=== PATIENT | male | born 1970 | race Caucasian/White ===

== ENCOUNTER 2016-11-22 03:09 | Emergency (ER) | payer MEDICARE, OTHER ==
[~2016-11-22 03:09] MED LIST: ABIL2TAB2 PO; CELE20TA PO
[2016-11-22 05:28] LABS: BASOPHIL # 0.1 TH/MM3 (0-0.2); BASOPHIL % 0.7 % (0.0-2.0); EOSINOPHIL # 0.2 TH/MM3 (0-0.4); EOSINOPHIL % 2.9 % (0.0-4.0); HEMATOCRIT 40.5 % (39.0-51.0); HEMO FLAGS DIFF FINAL; LYMPH % 33.4 % (9.0-44.0); LYMPHOCYTE # 2.6 TH/MM3 (1.0-4.8); MEAN CELL VOLUME 89.5 FL (80.0-100.0); MEAN CORPUSCULAR HGB CONC 35.8 % (32.0-36.0); MONO % 10.6 % (0.0-8.0); NEUT % 52.4 % (16.0-70.0); PLATELET COUNT 276 TH/MM3 (150-450); RED BLOOD COUNT 4.52 MIL/MM3 (4.50-5.90); RED CELL DISTRIBUTION WIDTH 14.4 % (11.6-17.2); WHITE BLOOD COUNT 7.6 TH/MM3 (4.0-11.0)
--- NOTE | 2016-11-22 05:28 | PD ---
HPI Chief Complaint: Psychiatric Symptoms Time Seen by Provider: 05:23 Travel History International Travel<30 days: No Contact w/Intl Traveler<30days: No Traveled to known affect area: No History of Present Illness HPI 46-year-old white male presents to emergency department under Mujica act. The patient states that he had been living in a sober living facility for the past month. He had just moved back to [place]. He had been staying in a sober living facility in [facility]. He states that one of the clients allegedly had been aggravating the patient due to his underlying mental illness. The patient states that he had him self Mujica acted before he became physical worse this individual or he performed self-harm. He states that he is disabled with Mental health problems. He has not been on medications now for over a year. Patient states that he has a history of alcohol and substance abuse in the past. He alleges sobriety now for over a month. He denies any toxic ingestions. No recent illness. PFS Past Medical History Narrative Medical Depression, chronic back and leg pain Depression: Yes Diabetes: No Diminished Hearing: No Psychiatric: Yes Immunizations Current: Yes Seizures: No Tetanus Vaccination: < 5 Years Past Surgical History Surgical History: No Previous Surgery Social History Alcohol Use: No Tobacco Use: Yes Substance Use: Yes ( OCCASIONALLY PER PT) Allergies-Medications (Allergen,Severity, Reaction): Coded Allergies: No Known Allergies (Unverified , 09/09/16) Reported Meds & Prescriptions Reported Meds & Active Scripts Active Reported Celexa (Citalopram Hydrobromide) 20 Mg Tab 20 Mg PO DAILY Abilify (Aripiprazole) 2 mg Tab 1 Tab PO DAILY Review of Systems Except as stated in HPI: all other systems reviewed are Neg Psychiatric: Positive: Depression, Suicidal Ideations, Mood Disorder, Substance Abuse, No: Anxiety, Disorder of Thought, Homicidal Ideation Physical Exam Narrative GENERAL: Well-nourished, well-developed patient. SKIN: Warm and dry. HEAD: Normocephalic and atraumatic. EYES: No scleral icterus. No injection or drainage. ENT: No nasal drainage noted. Mucous membranes pink. Airway patent. NECK: Supple, trachea midline. Moves head freely without obvious discomfort. CARDIOVASCULAR: Regular rate and rhythm without murmurs, gallops, or rubs. RESPIRATORY: Breath sounds equal bilaterally. No accessory muscle use. GASTROINTESTINAL: Abdomen soft, non-tender, nondistended. EXTREMITIES: No cyanosis or edema. BACK: Nontender without obvious deformity. No CVA tenderness. NEURO: Patient is alert and oriented. no sensorimotor deficits. Nonfocal. Normal speech. PSYCH: No delusions. No auditory or visual hallucinations. Data Data Last Documented VS Vital Signs Date Time Temp Pulse Resp B/P Pulse Ox O2 Delivery O2 Flow Rate FiO2 11/22/16 05:42 63 18 126/65 98 Room Air Orders Psych Screen (11/22/16 03:31) Diet Regular Basic (11/22/16 Breakfast) Complete Blood Count With Diff (11/22/16 04:49) Comprehensive Metabolic Panel (11/22/16 04:49) Drug Screen, Random Urine (11/22/16 04:49) Alcohol (Ethanol) (11/22/16 04:49) Salicylates (Aspirin) (11/22/16 04:49) Tylenol (Acetaminophen) (11/22/16 04:49) Labs Laboratory Tests Test 11/22/16 11/22/16 05:00 05:15 Urine Opiates Screen NEG Urine Barbiturates Screen NEG Urine Amphetamines Screen NEG Urine Benzodiazepines Screen NEG Urine Cocaine Screen NEG Urine Cannabinoids Screen NEG White Blood Count 7.6 TH/MM3 Red Blood Count 4.52 MIL/MM3 Hemoglobin 14.5 GM/DL Hematocrit 40.5 % Mean Corpuscular Volume 89.5 FL Mean Corpuscular Hemoglobin 32.0 PG Mean Corpuscular Hemoglobin 35.8 % Concent Red Cell Distribution Width 14.4 % Platelet Count 276 TH/MM3 Mean Platelet Volume 7.4 FL Neutrophils (%) (Auto) 52.4 % Lymphocytes (%) (Auto) 33.4 % Monocytes (%) (Auto) 10.6 % Eosinophils (%) (Auto) 2.9 % Basophils (%) (Auto) 0.7 % Neutrophils # (Auto) 4.0 TH/MM3 Lymphocytes # (Auto) 2.6 TH/MM3 Monocytes # (Auto) 0.8 TH/MM3 Eosinophils # (Auto) 0.2 TH/MM3 Basophils # (Auto) 0.1 TH/MM3 CBC Comment DIFF FINAL Differential Comment Sodium Level 141 MEQ/L Potassium Level 4.4 MEQ/L Chloride Level 107 MEQ/L Carbon Dioxide Level 28.3 MEQ/L Anion Gap 6 MEQ/L Blood Urea Nitrogen 10 MG/DL Creatinine 0.74 MG/DL Estimat Glomerular Filtration 113 ML/MIN Rate Random Glucose 80 MG/DL Calcium Level 8.9 MG/DL Total Bilirubin 0.3 MG/DL Aspartate Amino Transf 12 U/L (AST/SGOT) Alanine Aminotransferase 18 U/L (ALT/SGPT) Alkaline Phosphatase 70 U/L Total Protein 6.8 GM/DL Albumin 3.7 GM/DL Acetaminophen Level LESS THAN 2.0 MCG/ML Ethyl Alcohol Level LESS THAN 3 MG/DL MDM Medical Decision Making Medical Screen Exam Complete: Yes Emergency Medical Condition: Yes Medical Record Reviewed: Yes Interpretation(s) Laboratory Tests Test 11/22/16 11/22/16 05:00 05:15 Urine Opiates Screen NEG Urine Barbiturates Screen NEG Urine Amphetamines Screen NEG Urine Benzodiazepines Screen NEG Urine Cocaine Screen NEG Urine Cannabinoids Screen NEG White Blood Count 7.6 TH/MM3 Red Blood Count 4.52 MIL/MM3 Hemoglobin 14.5 GM/DL Hematocrit 40.5 % Mean Corpuscular Volume 89.5 FL Mean Corpuscular Hemoglobin 32.0 PG Mean Corpuscular Hemoglobin 35.8 % Concent Red Cell Distribution Width 14.4 % Platelet Count 276 TH/MM3 Mean Platelet Volume 7.4 FL Neutrophils (%) (Auto) 52.4 % Lymphocytes (%) (Auto) 33.4 % Monocytes (%) (Auto) 10.6 % Eosinophils (%) (Auto) 2.9 % Basophils (%) (Auto) 0.7 % Neutrophils # (Auto) 4.0 TH/MM3 Lymphocytes # (Auto) 2.6 TH/MM3 Monocytes # (Auto) 0.8 TH/MM3 Eosinophils # (Auto) 0.2 TH/MM3 Basophils # (Auto) 0.1 TH/MM3 CBC Comment DIFF FINAL Differential Comment Sodium Level 141 MEQ/L Potassium Level 4.4 MEQ/L Chloride Level 107 MEQ/L Carbon Dioxide Level 28.3 MEQ/L Anion Gap 6 MEQ/L Blood Urea Nitrogen 10 MG/DL Creatinine 0.74 MG/DL Estimat Glomerular Filtration 113 ML/MIN Rate Random Glucose 80 MG/DL Calcium Level 8.9 MG/DL Total Bilirubin 0.3 MG/DL Aspartate Amino Transf 12 U/L (AST/SGOT) Alanine Aminotransferase 18 U/L (ALT/SGPT) Alkaline Phosphatase 70 U/L Total Protein 6.8 GM/DL Albumin 3.7 GM/DL Acetaminophen Level LESS THAN 2.0 MCG/ML Ethyl Alcohol Level LESS THAN 3 MG/DL Differential Diagnosis MDM: High Differential diagnoses: Schizophrenia, schizoaffective disorder, bipolar, anxiety, depression, adjustment reaction, mood disorder NOS, ODD, depressive disorder NOS, dementia, dementia with agitation, psychosis NOS, substance induced mood disorder, intermittent explosive disorder, Asperger syndrome, infection,electrolyte abnormality, malingering. Narrative Course Mental health screening discussed with the patient. Psychiatric screen ordered. The patient is been medically cleared This is mood disorder Diagnosis Primary Impression: Mood disorder Condition: Stable Mac Roberts Nov 22, 2016 05:27
[2016-11-22 05:40] LABS: AMPHETAMINE, URINE NEG (NEG); BARBITURATES, URINE NEG (NEG); COCAINE, URINE NEG (NEG)
[2016-11-22 05:42] VITALS: BP 126/65; PULSE 63; RESP 18; O2SAT 98
[2016-11-22 05:47] LABS: ANION GAP 6 MEQ/L (5-15); AST (GOT) 12 U/L (15-37); BICARBONATE 28.3 MEQ/L (21.0-32.0); BLOOD UREA NITROGEN 10 MG/DL (7-18); CHLORIDE 107 MEQ/L (98-107); GLOMERULAR FILTRATION RATE 113 ML/MIN (>89); POTASSIUM 4.4 MEQ/L (3.5-5.1); SODIUM (NA) 141 MEQ/L (136-145)
[2016-11-22 05:49] LABS: ACETAMINOPHEN LESS THAN 2.0 MCG/ML (10.0-30.0); ALKALINE PHOSPHATASE 70 U/L (45-117); ALT (GPT) 18 U/L (12-78); TOTAL BILIRUBIN ADULT 0.3 MG/DL (0.2-1.0)
[2016-11-22 10:10] VITALS: BP 116/70; PULSE 76; RESP 18; O2SAT 98
[2016-11-22 14:50] VITALS: BP 113/65; PULSE 70; RESP 18; O2SAT 99
[2016-11-22] MEDS ORDERED: ACETAMINOPHEN 325 MG TAB PO ONE (16:00)
--- NOTE | 2016-11-22 17:26 | PD.CONS ---
Provisional Diagnosis Admission Date [place]. Adjustment disorder with depressed mood and anxiety, history of PTSD and depression History of Present Illness Service Psychiatry Consult Requested By Primary Care Physician No Primary Care Physician HPI The patient is a 46-year-old white man, domiciled alone in , single, unemployed, on SSI, with PPHx of depression, PTSD, over 10 hospitalizations, previous SAs, history of aggressive behavior, medical history of seizures, who presents to emergency department under Mujica act due to suicidal and homicidal ideation in the context of frustration. The patient states that he had been living in a sober living facility for the past months. He had just moved back to [place]. He had been staying in a sober living facility in [facility]. He states that one of the clients allegedly had been aggravating the patient due to his underlying mental illness. He states that he is disabled with Mental health problems. He has not been on medications now for over a year. Patient states that he has a history of alcohol and substance abuse in the past. On psychiatric evaluation today patient was found calm and cooperative, he stated that he was very frustrated and overwhelmed with staff in his living facility when he is stated that he was suicidal and homicidal. "I was just very Mad, but I didn't really mean that". Only longitudinal observation in the ER the patient has been calm, cooperative no agitation, no aggressive behavior, no mood or behavioral dysregulation has been reported. Patient denies depressive symptoms, he denies hopelessness, denies helplessness, worthlessness, problems with appetite or sleep, he denies visual and auditory hallucinations, he denies suicidal or homicidal ideation. Patient is oriented 3. No paranoia, delusion observed or reported. Patient denies the use of drugs and alcohol, he has been sober for several months. Review of Systems Constitutional: DENIES: Diaphoretic episodes, Fatigue, Fever, Weight gain, Weight loss, Chills, Dizziness, Change in appetite, Night Sweats Endocrine: DENIES: Heat/cold intolerance, Polydipsia, Polyuria, Polyphagia Eyes: DENIES: Blurred vision, Diplopia, Eye inflammation, Eye pain, Vision loss , Photosensitivity, Double Vision Ears, nose, mouth, throat: DENIES: Tinnitus, Hearing loss, Vertigo, Nasal discharge, Oral lesions, Throat pain, Hoarseness, Ear Pain, Running Nose, Epistaxis, Sinus Pain, Toothache, Odynophagia Respiratory: DENIES: Apneas, Cough, Snoring, Wheezing, Hemoptysis, Sputum production, Shortness of breath Cardiovascular: DENIES: Chest pain, Palpitations, Syncope, Dyspnea on Exertion , PND, Lower Extremity Edema, Orthopnea, Claudication Musculoskeletal: DENIES: Joint pain, Muscle aches, Stiffness, Joint Swelling, Back pain, Neck pain Integumentary: DENIES: Abnormal pigmentation, Nail changes, Pruritus, Rash Hematologic/lymphatic: DENIES: Bruising, Lymphadenopathy Immunologic/allergic: DENIES: Eczema, Urticaria Neurologic: DENIES: Abnormal gait, Headache, Localized weakness, Paresthesias, Seizures, Speech Problems, Tremor, Poor Balance Psychiatric: DENIES: Anxiety, Confusion, Mood changes, Depression, Hallucinations, Agitation, Suicidal Ideation, Homicidal Ideation, Delusions Past Family Social History Coded Allergies: No Known Allergies (Unverified , 09/09/16) Reported Medications Citalopram Hydrobromide (Celexa)20 Mg Tab20 Mg PO DAILY 08/06/14 Abilify 2 mg Tab1 Tab PO DAILY 08/06/14 Family History He denies Social History Patient was born and raised in [place], he has been living for several 4 years, he lives in a sober house, he is single, has no kids, he is unemployed, is on SSI, he has a GED. Physical Exam Vital Signs Vital Signs Date Time Temp Pulse Resp B/P Pulse Ox O2 Delivery O2 Flow Rate FiO2 11/22/16 14:50 70 18 113/65 99 Room Air Mental Status Examination Appearance man, good hygiene, age appearing, he is irritable, but cooperative Speech: Unremarkable Orientation: x3 Memory: Unremarkable Thought Process: Logical Thought Content: Unremarkable Hallucination Type: None Suicidal Ideation: No Homicidal Ideation: No Previous Homicide Attempts: No Judgement: Impulsive Affect: Irritable Mood: Appropriate Motor Activity: Normal gait Assessment & Plan Problem List: (1) Adjustment disorder with mixed anxiety and depressed mood Assessment & Plan: On psychiatric evaluation today the patient does not present or report any depression, anxiety, jodi or psychosis. Patient denies suicidal or homicidal ideation. He denies visual and auditory hallucination. No aggressive behavior, agitation, mood or behavioral dysregulation has been reported or observed or longitudinal observation. Recent suicidal and homicidal statement made by the patient seems to be secondary to adjustment disorder and frustration. He does not meet criteria for second admission at this moment. He can continue his rehabilitation program in his sober living facility. Support, motivation and psychoeducation provided. Mujica act will lifted. ICD Code: F43.23 Assessment & Plan Estimated LOS: days Luca Smith MD Nov 22, 2016 17:26
== END 2016-11-22 18:35 | disposition home or self-care (01) ==
LOC: NEPJ 03:09
DX: F43.23 Adjustment disorder with mixed anxiety and depressed mood (principal); Z72.0 Tobacco use; F43.10 Post-traumatic stress disorder, unspecified; Z56.0 Unemployment, unspecified
CPT/HCPCS: 80053; 80307; 80320; 80329; 85025; 99283; G0480